=== PATIENT | female | born 1965 | race Two or more races ===

== ENCOUNTER → 2016-11-03 | Outpatient (CLI) | payer OTHER ==
--- NOTE | 2016-11-03 10:55 | RAD ---
DATE: 11/03/2016 EXAM: DIGITAL DIAGNOSTIC BILATERAL HISTORY: Breast lumps COMPARISON: 10/22/2015 This study was interpreted with the benefit of Computerized Aided Detection (CAD). The breast parenchyma shows scattered fibroglandular densities. Breast parenchyma level B. FINDINGS: Two small smooth nodules in the right breast at the 6:00 location are unchanged. They demonstrate hilar lucencies compatible with intramammary lymph nodes. No new or enlarging breast densities are seen. There is minimal benign type calcification. No suspicious microcalcifications have developed. Bilateral breast ultrasound, 11/03/2016: A targeted ultrasound exam of the right breast was performed centered at the 5:00 location, in the area of reported palpable concern. Normal heterogeneous fibroglandular shadows are present. No breast mass is seen. A targeted ultrasound exam of the left breast was also performed at the 12:00 location in the area of reported palpable concern. Normal heterogeneous fibroglandular shadows are present. No breast mass is seen. IMPRESSION: 1. Stable mammograms without evidence of malignancy. 2. The targeted ultrasound exam of both breasts reveals no abnormality. Further clinical surveillance is suggested. BI-RADS CATEGORY: 2 BENIGN FINDING(S) RECOMMENDED FOLLOW-UP: 12M 12 MONTH FOLLOW-UP PQRS compliance statement: Patient information was entered into a reminder system with a target due date for the next mammogram. Mammography is a sensitive method for finding small breast cancers, but it does not detect them all and is not a substitute for careful clinical examination. A negative mammogram does not negate a clinically suspicious finding and should not result in delay in biopsying a clinically suspicious abnormality. "Our facility is accredited by the [employer] Mammography [employer]."
--- NOTE | 2016-11-06 12:23 | RAD ---
DATE: 11/03/2016 EXAM: DIGITAL DIAGNOSTIC BILATERAL HISTORY: Breast lumps COMPARISON: 10/22/2015 This study was interpreted with the benefit of Computerized Aided Detection (CAD ). The breast parenchyma shows scattered fibroglandular densities. Breast parenchyma level B. FINDINGS: Two small smooth nodules in the right breast at the 6:00 location are unchanged. They demonstrate hilar lucencies compatible with intramammary lymph nodes. No new or enlarging breast densities are seen. There is minimal benign type calcification. No suspicious microcalcifications have developed. Bilateral breast ultrasound, 11/03/2016: A targeted ultrasound exam of the right breast was performed centered at the 5: 00 location, in the area of reported palpable concern. Normal heterogeneous fibroglandular shadows are present. No breast mass is seen. A targeted ultrasound exam of the left breast was also performed at the 12:00 location in the area of reported palpable concern. Normal heterogeneous fibroglandular shadows are present. No breast mass is seen. IMPRESSION: 1. Stable mammograms without evidence of malignancy. 2. The targeted ultrasound exam of both breasts reveals no abnormality. Further clinical surveillance is suggested. BI-RADS CATEGORY: 2 BENIGN FINDING(S) RECOMMENDED FOLLOW-UP: 12M 12 MONTH FOLLOW-UP PQRS compliance statement: Patient information was entered into a reminder system with a target due date for the next mammogram. Mammography is a sensitive method for finding small breast cancers, but it does not detect them all and is not a substitute for careful clinical examination. A negative mammogram does not negate a clinically suspicious finding and should not result in delay in biopsying a clinically suspicious abnormality. "Our facility is accredited by the [employer] Mammography [employer]." MTDD
== END | disposition home or self-care (01) ==
LOC: MAMMO 10:00
PROVIDERS: ATTEND Family Medicine
DX: N63 Unspecified lump in breast (principal)
CPT/HCPCS: 76641; G0204; 77066